=== PATIENT | female | born 1965 | race African-American/Black ===

== ENCOUNTER 2018-09-12 10:28 | Emergency (ER) | payer BC, OTHER ==
[~2018-09-12] VITALS: Ht 160 cm; Wt 108.0 kg
[2018-09-12 10:30] VITALS: BP 148/100
[2018-09-12] MEDS ORDERED: OMEPRAZOLE 20 M20 M1 PO (10:35)
== END 2018-09-12 11:46 | disposition home or self-care (01) ==
LOC: ER 10:28
DX: S60.442A External constriction of right middle finger, initial encounter (principal); W49.04XA Ring or other jewelry causing external constriction, initial encounter; Z88.0 Allergy status to penicillin; Y92.89 Other specified places as the place of occurrence of the external cause; Y93.89 Activity, other specified; Y99.8 Other external cause status